=== PATIENT | male | born 1955 | race Asian ===

== ENCOUNTER 2023-12-16 19:15 | Emergency (ER) | payer OTHER ==
[~2023-12-16] VITALS: Ht 167.6 cm; Wt 63.6 kg
[2023-12-16 19:32] VITALS: TEMP 98.2
[2023-12-16 20:22] VITALS: BP 124/82; PULSE 77; RESP 18
[2023-12-16] MEDS ORDERED: POLY17PO62 PO (23:41)
== END 2023-12-17 00:24 | disposition home or self-care (01) ==
LOC: EMS 19:15
DX: K59.00 Constipation, unspecified (principal); M54.9 Dorsalgia, unspecified; M25.551 Pain in right hip; I10 Essential (primary) hypertension; Z79.899 Other long term (current) drug therapy
CPT/HCPCS: 73502; 74018; 74176; 99284